=== PATIENT | male | born 2000 | race Caucasian/White ===

== ENCOUNTER 2020-09-12 07:44 | Emergency (ER) | payer SELFPAY ==
[~2020-09-12] VITALS: Ht 172.7 cm; Wt 90.0 kg
[~2020-09-12 07:44] MED LIST: AMOXICILLIN500 MG PO; TET/DIP TOX1 ML IM
[2020-09-12] MEDS ORDERED: KEFLEX500 MG PO (08:22)
[2020-09-12 08:54] VITALS: BP 117/66
== END 2020-09-12 08:54 | disposition home or self-care (01) | DRG 914 ==
LOC: ED 07:44
PROC: 0HQKXZZ Repair Right Lower Leg Skin, External Approach (ICD-10-PCS; principal; 2020-09-12)
DX: S81.021A Laceration with foreign body, right knee, initial encounter (principal); W20.8XXA Other cause of strike by thrown, projected or falling object, initial encounter; Y93.89 Activity, other specified; Y92.89 Other specified places as the place of occurrence of the external cause; Y99.0 Civilian activity done for income or pay